=== PATIENT | female | born 1990 | race Caucasian/White ===

== ENCOUNTER 2019-05-23 16:55 | Emergency (ER) | payer OTHER ==
[~2019-05-23] VITALS: Ht 167.6 cm; Wt 74.8 kg
[2019-05-23] MEDS ORDERED: ENBRACE HR SOF1 EACH PO (17:08)
[2019-05-23] MEDS ORDERED: REGLAN 10 MG TA10 MG PO (18:30)
[2019-05-23 19:26] VITALS: BP 125/78
== END 2019-05-23 19:27 | disposition home or self-care (01) ==
LOC: M.ERS 16:55
DX: O99.351 Diseases of the nervous system complicating pregnancy, first trimester (principal); Z3A.13 13 weeks gestation of pregnancy; Z88.8 Allergy status to other drugs, medicaments and biological substances